=== PATIENT | male | born 1980 | race Caucasian/White ===

== ENCOUNTER 2017-01-05 09:51 | Emergency (ER) | payer MEDICAID, OTHER ==
[2017-01-05 10:47] VITALS: BP 118/79
--- NOTE | 2017-01-05 12:21 | UC ---
Back Pain HPI - HPI Summary HPI Summary: 36 yo M with bilat low back pain/flank pain for months, worse the past few weeks. Pt with hx kidney stones, but states it is not like his kidney stones. No injury. Works as a journeyman painter, does heavy lifting, but thinks it is not musculoskeletal. Feels it is related to his abdomen, because the pain is most severe in the am when he wakes up, and then after several episodes of moving his bowels, the pain improves. No dysuria, no hematuria. Pt also seeks care for "black out spells" that happen when he takes deep breaths or coughs, associated with headaches at his left gnosticist, and sometimes affect his vision, not currently a problem. - History of Current Complaint Chief Complaint: UCBackPain Stated Complaint: LOW BACK PAIN Time Seen by Provider: 01/05/17 11:15 Hx Obtained From: Patient Onset/Duration: Gradual Onset, Lasting Weeks, Still Present Timing: Constant Severity Initially: Moderate Severity Currently: Moderate Pain Intensity: 4 Pain Scale Used: 0-10 Numeric Back Pain: Is Discrete @ - bilat lumbosacral paraspinous Character: Aching, Spasmodic Aggravating: Cough Alleviating: Nothing Associated Signs And Symptoms: Positive: Negative - Allergies/Home Medications Allergies/Adverse Reactions: Allergies Allergy/AdvReac Type Severity Reaction Status Date / Time Bupropion [From Wellbutrin] Allergy See Comment Verified 01/05/17 10:47 Penicillins AdvReac GI Upset Verified 01/05/17 10:47 PMH/Surg Hx/FS Hx/Imm Hx Previously Healthy: No Psychological History: Bipolar Disorder - Surgical History Surgical History: Yes Surgery Procedure, Year, and Place: Hand, right shoulder 2013 - Family History Known Family History: Positive: Hypertension - Social History Lives: With Family Alcohol Use: None Substance Use Type: Marijuana Substance Use Comment - Amount & Last Used: 01/04/17 Smoking Status (MU): Heavy Every Day Tobacco Smoker Type: Cigarettes Amount Used/How Often: 2 PPD Length of Time of Smoking/Using Tobacco: ~20 Years Have You Smoked in the Last Year: Yes Household Exposure Type: Cigarettes Review of Systems Constitutional: Other - "blackout spells with cough" Skin: Rash - rash in creases where he sweats Eyes: Negative ENT: Negative Respiratory: Negative Cardiovascular: Negative Gastrointestinal: Negative Genitourinary: Negative Motor: Negative Neurovascular: Negative Musculoskeletal: Myalgia - bilat low lumbar pain Neurological: Negative Psychological: Negative All Other Systems Reviewed And Are Negative: Yes Physical Exam Triage Information Reviewed: Yes Appearance: No Pain Distress, Ill-Appearing, Obese Vital Signs: Initial Vital Signs Temp 98.7 F 01/05/17 10:30 Pulse 83 01/05/17 10:30 Resp 20 01/05/17 10:30 BP 118/79 01/05/17 10:30 Vital Signs Reviewed: Yes Eyes: Positive: Conjunctiva Clear ENT: Positive: Normal ENT inspection, Hearing grossly normal. Negative: Muffled /hoarse voice Neck: Positive: Supple, Nontender, No Lymphadenopathy Respiratory: Positive: Lungs clear, Normal breath sounds, No respiratory distress, No accessory muscle use Cardiovascular: Positive: RRR, No Murmur, Pulses Normal, Brisk Capillary Refill Abdomen Description: Positive: Nontender, No Organomegaly, Soft. Negative: Bruit, CVA Tenderness (R), CVA Tenderness (L), Distended, Guarding, Hernia @, Hepatomegaly, McBurney's Point Tenderness, Peritoneal Signs, Pulsatile Mass, Splenomegaly Bowel Sounds: Positive: Present Musculoskeletal: Positive: Strength Intact, ROM Intact, Other: - pain bilateral paraspinous, lumbar Neurological: Positive: Alert, Muscle Tone Normal Psychological Exam: Normal Skin: Positive: rashes - redness confluent in skin folds with macular papular satellite lesions Back Pain Course/Dx - Course Course Of Treatment: UA is neg. No evidence that pt's pain is related to his kidneys. Suspect bilat lumbar strain. However, pt's "blackout spells" are concerning for seizure, syncope, TIA and need further evaluation. Advised pt to seek further medical eval in the ED now. States he cannot, states he will "go tomorrow". Voices understanding of risks. Girlfriend is with pt. Pt signs AMA with girlfriend as witness. Pt is not drug seeking and does not want a work release, wants a dx. Advised he needs higher level of care for this. Even though pt is AMA will still offer nystatin cream for intertrigonal candidia. Pt is ambulatory at [facility]. Pt is given a list of PCP's. States his doctor will no longer see him because he was noncompliant with bipolar meds. - Differential Dx/Diagnosis Differential Diagnosis/HQI/PQRI: Herniated Disc, Renal Colic, Strain, Sprain Provider Diagnoses: bilateral flank pain. reported "blackout spells". intertrigonal federica Discharge - Discharge Plan Condition: Stable Disposition: HOME Prescriptions: Nystatin CREAM* [Nystatin Cream*] 1 applic TOPICAL BID #60 gm Patient Education Materials: Flank Pain (ED) Referrals: No Primary Care Phys,NOPCP [Primary Care Provider] -
== END 2017-01-05 12:12 | disposition home or self-care (01) ==
LOC: UCCORT 09:51
DX: M54.5 Low back pain (principal); B37.2 Candidiasis of skin and nail; R55 Syncope and collapse; Z87.442 Personal history of urinary calculi; F31.9 Bipolar disorder, unspecified; E66.9 Obesity, unspecified; Z88.0 Allergy status to penicillin; Z88.8 Allergy status to other drugs, medicaments and biological substances; F12.90 Cannabis use, unspecified, uncomplicated; F17.210 Nicotine dependence, cigarettes, uncomplicated
CPT/HCPCS: 81003; 99212; G0463

== ENCOUNTER 2018-09-29 12:12 | Emergency (ER) | payer MEDICAID, OTHER ==
[2018-09-29 13:22] VITALS: BP 124/76
--- NOTE | 2018-09-29 13:56 | UC ---
Elbow Pain - HPI Summary HPI Summary: Right elbow and right rib pain. he fell a few days ago on the right side. No numbness or weakness and no sob. He smokes marijuanna but no pain with deep breaths. - History of Current Complaint Chief Complaint: UCUpperExtremity Stated Complaint: R SIDE & R ELBOW PAIN - INJURY Time Seen by Provider: 09/29/18 13:42 Hx Obtained From: Patient Onset/Duration: Days Severity Initially: Moderate Severity Currently: Moderate Pain Intensity: 5 Location Of Pain: Is Discrete @ - right lateral ribs and right posterior elbow. Character: Sharp, Aching Aggravating Factor(s): Movement, Pulling Alleviating Factor(s): Rest Associated Signs And Symptoms: Negative: Swelling, Redness, Bruising, Fever, Weakness, Numbness/Tingling - Allergies/Home Medications Allergies/Adverse Reactions: Allergies Allergy/AdvReac Type Severity Reaction Status Date / Time bupropion [From Wellbutrin] Allergy See Comment Verified 09/29/18 13:23 Penicillins Allergy GI Upset Verified 09/29/18 13:23 PMH/Surg Hx/FS Hx/Imm Hx Previously Healthy: No - Surgical History Surgical History: Yes Surgery Procedure, Year, and Place: Hand, right shoulder 2013 - Family History Known Family History: Positive: None, Hypertension - Social History Alcohol Use: None Substance Use Type: Marijuana Substance Use Comment - Amount & Last Used: daily Smoking Status (MU): Heavy Every Day Tobacco Smoker Type: Cigarettes Amount Used/How Often: 2 PPD Length of Time of Smoking/Using Tobacco: ~20 Years Have You Smoked in the Last Year: Yes Household Exposure Type: Cigarettes Review of Systems All Other Systems Reviewed And Are Negative: Yes Musculoskeletal: Positive: Arthralgia, Other: - right rib pain with palpation. Physical Exam Triage Information Reviewed: Yes Appearance: Well-Appearing - easily changes position and appears comfortable., No Pain Distress, Obese Vital Signs: Initial Vital Signs Temp 98.7 F 09/29/18 13:18 Pulse 64 09/29/18 13:18 Resp 18 09/29/18 13:18 BP 124/76 09/29/18 13:18 Pulse Ox 98 09/29/18 13:18 Vital Signs Reviewed: Yes Eye Exam: Normal Eyes: Positive: Conjunctiva Clear. Negative: Conjunctiva Inflamed ENT: Positive: Normal ENT inspection Neck: Positive: Supple, Nontender, No Lymphadenopathy Respiratory: Positive: Lungs clear - No hyperressonance to percussion. Breathing comfortably., Normal breath sounds, No respiratory distress, No accessory muscle use. Negative: Respiratory distress, Decreased breath sounds, Accessory muscle use, Crackles, Rhonchi, Stridor, Wheezing Cardiovascular: Positive: RRR, No Murmur, Pulses Normal, Brisk Capillary Refill Abdomen Description: Positive: No Organomegaly, Soft. Negative: Distended, Guarding Musculoskeletal Exam: Other - Full rom of the right elbow. NO autumn tenderness. No swelling or pain. Musculoskeletal: Positive: Strength Intact, ROM Intact, No Edema Neurological: Positive: Alert, Muscle Tone Normal. Negative: Fatigued Psychological Exam: Normal Psychological: Positive: Age Appropriate Behavior Skin: Negative: Rashes Elbow Pain Course/Dx - Differential Dx/Diagnosis Provider Diagnosis: Right elbow pain Discharge - Sign-Out/Discharge Documenting (check all that apply): Patient Departure All imaging exams completed and their final reports reviewed: Yes - Discharge Plan Condition: Good Disposition: HOME Prescriptions: Naproxen [Naproxen 500 mg tab] 500 mg PO BID PRN #20 tablet.dr RODRIGUEZ Reason: Pain Patient Education Materials: Elbow Sprain (ED), Rib Contusion (ED) Referrals: No Primary Care Phys,NOPCP [Primary Care Provider] - - Billing Disposition and Condition Condition: GOOD Disposition: Home
== END 2018-09-29 14:06 | disposition home or self-care (01) ==
LOC: UCCORT 12:12
DX: M25.521 Pain in right elbow (principal); R07.81 Pleurodynia; E66.9 Obesity, unspecified; F17.210 Nicotine dependence, cigarettes, uncomplicated; Z88.8 Allergy status to other drugs, medicaments and biological substances; Z88.0 Allergy status to penicillin; W19.XXXA Unspecified fall, initial encounter; Y92.9 Unspecified place or not applicable
CPT/HCPCS: 99211; G0463

== ENCOUNTER 2019-09-21 18:50 | Emergency (ER) | payer OTHER ==
[2019-09-21 19:05] VITALS: BP 126/70
--- NOTE | 2019-09-21 19:33 | UC ---
Cardiac HPI - HPI Summary HPI Summary: C/O sharp stabbing right sided chest wall pain. Worse with taking a deep breath , coughing or sneezing. No fever or SOB. Unable to lie on the right side. - History of Current Complaint Chief Complaint: UCGeneralIllness Stated Complaint: SHARP PAIN RIGHT SIDE OF CHEST Time Seen by Provider: 09/21/19 19:21 Hx Obtained From: Patient Onset/Duration: Sudden Onset, Lasting Days - 5, Still Present Timing: Intermittent Episodes Lasting: - 15-60 seconds Initial Severity: Severe Current Severity: Severe Pain Intensity: 0 Chest Pain Location: Right Anterior, Right Lateral Character: Sharp/Stabbing Aggravating Factor(s): Movement, Deep Breaths Alleviating Factor(s): Rest, Position Associated Signs & Symptoms: Positive: Chest Pain, Cough - chronic smokers cough. Negative: SOB, Syncope, Fever, Diaphoresis, Nausea/Vomiting, Hemoptysis - Allergy/Home Medications Allergies/Adverse Reactions: Allergies Allergy/AdvReac Type Severity Reaction Status Date / Time bupropion [From Wellbutrin] Allergy See Comment Verified 09/21/19 19:05 Penicillins Allergy GI Upset Verified 09/21/19 19:05 Home Medications: Home Medications Magnesium Oxide TAB* [MagOx 400 TAB*] 400 mg PO BID #60 tab 09/21/19 [Rx] PMH/Surg Hx/FS Hx/Imm Hx Previously Healthy: Yes - Surgical History Surgical History: Yes Surgery Procedure, Year, and Place: Hand, right shoulder 2013 - Family History Known Family History: Positive: Hypertension - Social History Occupation: Employed Full-time Lives: With Family - GF and son Alcohol Use: None Substance Use Type: Marijuana Substance Use Comment - Amount & Last Used: daily Smoking Status (MU): Heavy Every Day Tobacco Smoker Type: Cigarettes Amount Used/How Often: 1 PPD Length of Time of Smoking/Using Tobacco: ~20 Years Have You Smoked in the Last Year: Yes Household Exposure Type: Cigarettes Cessation Counseling: Patient Advised to Stop Review of Systems All Other Systems Reviewed And Are Negative: Yes ENT: Positive: Ear Ache - right ear ache when lying down on the right side. Unable to pop the ear. Better with sitting up. Respiratory: Positive: Cough Cardiovascular: Positive: Chest Pain Physical Exam Triage Information Reviewed: Yes Appearance: Pain Distress - mild, Obese Vital Signs: Initial Vital Signs Temp 100.2 F 09/21/19 18:57 Pulse 93 09/21/19 18:57 Resp 18 09/21/19 18:57 BP 126/70 09/21/19 18:57 Pulse Ox 97 09/21/19 18:57 Eyes: Positive: Conjunctiva Inflamed ENT: Positive: Pharynx normal, Nasal congestion, TMs normal Neck exam: Normal Respiratory: Positive: Lungs clear - with splinting respiration.. Negative: Chest non-tender - Tender right anterior chest wall around the 7-9th ribs. No tenderness posteriorly Cardiovascular Exam: Normal Musculoskeletal Exam: Normal Neurological Exam: Normal Psychological Exam: Normal Skin Exam: Normal Diagnostics - Radiology No standard instances Radiology Interpretation Completed By: ED Physician Summary of Radiographic Findings: No fracture. - Differential Diagnoses - Chest Pain Differential Diagnosis/HQI/PQRI: Chest Wall, Lower Respiratory Infection, Pulmonary Edema, Pulmonary Embolism - Clinical Impression Provider Diagnosis: Rib pain on right side, Dysfunction of right eustachian tube, Allergic rhinitis Discharge ED - Sign-Out/Discharge Documenting (check all that apply): Patient Departure All imaging exams completed and their final reports reviewed: No - Discharge Plan Condition: Stable Disposition: HOME Prescriptions: Magnesium Oxide TAB* [MagOx 400 TAB*] 400 mg PO BID #60 tab Patient Education Materials: Chest Wall Pain (ED), Muscle Cramp (ED), Allergic Rhinitis (ED) Referrals: No Primary Care Phys,NOPCP [Primary Care Provider] - Additional Instructions: 1. hydration 64 oz a day of water. Coffee doesn't count. 2. magnesium 400 mg twice a day. 3. Vitamin D3 5000iu caps, 3 all at once, once a week. Smoking Cessation Tricks. 1. Cut down by 1 cigarette per day every 2-3 days. Write the number of smokes for that day on the calendar. 2. Identify triggers to smoking: after meals, on the phone, in the car, with coffee, on breaks at work, etc. 3. Formulate a plan with a behavior to replace the smoking. Fireballs in the car , doodle pad on the phone, flavored creamer for the coffee, go for a walk after a meal or on break at work. 4. For stress smokes do deep breathing relaxation. Breath deep in through the nose hold the breath in for a few seconds then breath out slowly through the mouth. NEILMED SINUS RINSE: CHECK OUT AT [facility] Saline nasal wash helps with mucous, allergies and congestion. It can be used up to twice a day or only as needed. Use lukewarm tap water. It does not have to be sterilized or distilled water. Tilt your head straight down into the sink. Do 1/3 on each side and snort out of both nostrils. Repeat the process with 1/6 of the bottle on each side with snorting in between to finish the solution in the bottle EUSTATION TUBE DYSFUNCTION: The tube that allows the middle ear to equalize the pressure with the outside air is blocked. This can be due to colds, allergies, smoke, or other irritants. Short term treatment can include Afrin, sudafed and nasal cortisone sprays for allergies. - Billing Disposition and Condition Condition: STABLE Disposition: Home
--- NOTE | 2019-09-22 08:59 | UC ---
- Progress Note Progress Note: If patient is still having pain with taking a deep breath and/or feeling shortness of breath would recommend going to ER for evaluation for a blood clot in the lungs that requires a ct scan. Chest xray did not show pneumonia but small amount of fluid at the base of right lung - EKG/XRAY/CT XRAY: chest - trace right pleural effusion, minimal bibasilar atelectasis No rib fracture or pneumothorax Course/Dx - Diagnoses Provider Diagnoses: Rib pain on right side, Dysfunction of right eustachian tube, Allergic rhinitis Discharge ED - Sign-Out/Discharge Documenting (check all that apply): Post-Discharge Follow Up All imaging exams completed and their final reports reviewed: Yes - Discharge Plan Condition: Fair Disposition: HOME Prescriptions: Magnesium Oxide TAB* [MagOx 400 TAB*] 400 mg PO BID #60 tab Patient Education Materials: Allergic Rhinitis (ED), Muscle Cramp (ED), Chest Wall Pain (ED) Referrals: No Primary Care Phys,NOPCP [Primary Care Provider] - Additional Instructions: Patient needs to go the ER to get further evaluated for a pulmonary embolism - Billing Disposition and Condition Condition: FAIR Disposition: Home
== END 2019-09-21 20:02 | disposition home or self-care (01) ==
LOC: UCCORT 18:50
DX: R07.81 Pleurodynia (principal); H69.91 Unspecified Eustachian tube disorder, right ear; R05 Cough; F17.210 Nicotine dependence, cigarettes, uncomplicated; J30.9 Allergic rhinitis, unspecified; Z88.8 Allergy status to other drugs, medicaments and biological substances; Z88.0 Allergy status to penicillin
CPT/HCPCS: 99212; G0463